=== PATIENT | male | born 1990 | race Two or more races ===

== ENCOUNTER 2017-01-02 23:23 | Emergency (ER) | payer MEDICAID, OTHER ==
[~2017-01-02] VITALS: Ht 172.7 cm; Wt 77.1 kg
[2017-01-02 23:31] VITALS: BP 132/72
== END 2017-01-03 00:06 | disposition left against medical advice (07) ==
LOC: ER 23:26
DX: R51 Headache (principal); Z53.21 Procedure and treatment not carried out due to patient leaving prior to being seen by health care provider

== ENCOUNTER 2020-10-06 13:28 | Emergency (ER) | payer MEDICAID, OTHER ==
[~2020-10-06] VITALS: Ht 177.8 cm; Wt 93.9 kg
[2020-10-06 13:36] VITALS: BP 141/99
== END 2020-10-06 16:01 | disposition left against medical advice (07) ==
LOC: ER 13:28
DX: S61.512A Laceration without foreign body of left wrist, initial encounter (principal); Z53.21 Procedure and treatment not carried out due to patient leaving prior to being seen by health care provider; X58.XXXA Exposure to other specified factors, initial encounter; Y93.89 Activity, other specified; Y92.89 Other specified places as the place of occurrence of the external cause; Y99.8 Other external cause status